=== PATIENT | male | born 1955 | race Caucasian/White ===

== ENCOUNTER 2022-04-19 21:18 | Emergency (ER) | payer OTHER, MEDICARE ==
[2022-04-19] MEDS ORDERED: Sodium Chloride 0.9% 10 ML Syringe FLUSH PRN (21:34)
[2022-04-19 21:58] LABS: CHLORIDE,CL 102 mmol/L (98-107); SODIUM,NA 140 mmol/L (136-145)
[2022-04-19] MEDS ORDERED: Sodium Chloride 0.9% 1,000 ML IV SCH (22:00)
[2022-04-19 22:01] LABS: ANION GAP 11.9 mmol/L (5-15); ESTIMATED GFR 84 mL/min (>=60)
[2022-04-19] MEDS ORDERED: fentaNYL 50 MCG/ML SDV IVPUSH ONE (22:14)
[2022-04-19] MEDS ORDERED: Ondansetron 4 MG/2 ML SDV IVPUSH ONE (22:14)
== END 2022-04-20 00:05 | disposition short-term general hospital (02) ==
LOC: VM.ED 21:18
DX: S06.0X1A Concussion with loss of consciousness of 30 minutes or less, initial encounter (principal); S01.81XA Laceration without foreign body of other part of head, initial encounter; V89.2XXA Person injured in unspecified motor-vehicle accident, traffic, initial encounter
CPT/HCPCS: 12011; 12013; 36415; 70450; 71045; 74176; 80053; 81001; 85025; 85610; 96361; 96374; 96375; 99283; 99285; J2405; J3010; J7030